=== PATIENT | male | born 1970 ===

== ENCOUNTER 2017-01-31 00:09 | Observation (INO) | payer SELFPAY ==
[2017-01-31 00:24] VITALS: TEMP 98.4
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
[2017-01-31] MEDS ORDERED: Oxycodone/Acetaminophen 5/325 mg Tab PO ONE (06:40)
[2017-01-31] MEDS ORDERED: Oxycodone/Acetaminophen 5/325 mg Tab ONE (06:40)
--- NOTE | 2017-01-31 07:27 | ED PDOC ---
- ECG O2 Sat by Pulse Oximetry: 98 (RA) Pulse Ox Interpretation: Normal Medical Decision Making Medical Decision Making: Receiving Sign Out: Patient signed out to me by Dr. Peters pending clavicular XR results and final disposition. Scribe Attestation: Documented by Elise Neri acting as a scribe for Elier Honeycutt DO. Provider Attestation: All medical record entries made by the Scribe were at my direction and personally dictated by me. I have reviewed the chart and agree that the record accurately reflects my personal performance of the history, physical exam, medical decision making, and the department course for this patient. I have also personally directed, reviewed, and agree with the discharge instructions and disposition. Disposition - Clinical Impression Clinical Impression: Clavicle fracture, Alcohol intoxication - POA Present On Arrival: None - Disposition Disposition: Routine/Home Disposition Time: 11:07 Condition: IMPROVED Progress Note - Review of Symptoms Events since last encounter: Time: 919 Clavicle XR Findings: Two views of the right and left clavicles obtained. There is a mildly displaced fracture of the midportion of the right clavicle. The left clavicle appears intact. The clavicular acromial joint appear normal. Impression: Elongated mildly displaced fracture of the midportion of the right clavicle. Please note that the sternoclavicular joints are suboptimally seen. Time: 1042 Pt is asleep in room, vitals stable. Time: 11:06 Pt feels better. Will d/c home.
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
[2017-01-31 11:57] VITALS: RESP 18
[2017-01-31 12:18] VITALS: BP 121/77; PULSE 87
[2017-01-31 20:01] VITALS: O2SAT 98
== END 2017-01-31 12:15 | disposition home or self-care (01) ==
LOC: H.ER 00:09 → H.EROBSV 00:59
PROVIDERS: ADMIT Emergency Medicine; ATTEND Emergency Medicine
DX: F10.129 Alcohol abuse with intoxication, unspecified (principal); S42.009A Fracture of unspecified part of unspecified clavicle, initial encounter for closed fracture; V18.4XXA Pedal cycle driver injured in noncollision transport accident in traffic accident, initial encounter
CPT/HCPCS: 70450; 71010; 73000; 73030; 73130; 82948; 99284; G0378; G0480